=== PATIENT | female | born 1995 | race Caucasian/White ===

== ENCOUNTER 2019-12-16 09:45 | Emergency (ER) | payer OTHER ==
[~2019-12-16] VITALS: Ht 175.3 cm; Wt 113.4 kg
[2019-12-16 10:38] LABS: BASOPHILS ABSOLUTE AUTO 0.03 K/mm3 (0.00-0.23); BASOPHILS PERCENT AUTO 0 % (0-2); EOSINOPHILS ABSOLUTE AUTO 0.03 K/mm3 (0.00-0.68); EOSINOPHILS PERCENT AUTO 0 % (0-6); Hemoglobin 12.2 g/dL (11.5-16.0); IMMATURE GRAN ABSOLUTE AUTO 0.03 K/mm3 (0.00-0.10); IMMATURE GRAN PERCENT AUTO 0 % (0-1); LYMPHOCYTES ABSOLUTE AUTO 0.94 K/mm3 (0.84-5.20); LYMPHOCYTES PERCENT AUTO 12 % (21-46); MONOCYTES ABSOLUTE AUTO 0.72 K/mm3 (0.16-1.47); MONOCYTES PERCENT AUTO 9 % (4-13); Mean Corpuscular HGB 25.7 pg (26.0-34.0); Mean Corpuscular HGB Conc 30.5 g/dL (31.5-36.5); Mean Corpuscular Volume 84 fL (80-100); Mean Platelet Volume 9.5 fL (9.1-12.4); NEUTROPHILS ABSOLUTE AUTO 6.06 K/mm3 (1.96-9.15); NEUTROPHILS PERCENT AUTO 78 % (41-73); Platelet Count 280 K/mm3 (150-400); RDW Coefficient Variation 14.7 % (11.7-14.2); RDW Standard Deviation 45.1 fL (35.1-46.3); Red Blood Cell Count 4.74 M/mm3 (3.80-5.20); White Blood Cell Count 7.81 K/mm3 (4.00-11.30)
[2019-12-16 10:57] LABS: Anion Gap 5 mmol/L (6-16); Blood Urea Nitrogen 12 mg/dL (8-24); Bun/Creatinine Ratio 15.4 (12.0-20.0); CO2, Blood 27 mmol/L (21-32); Calcium, Blood 9.5 mg/dL (8.5-10.1); Chloride, Blood 107 mmol/L (98-108); Creatinine, Blood 0.78 mg/dL (0.40-1.00); Glomerular Filtration Rate >60 (60-); Glucose, Blood 88 mg/dL (70-99); Potassium, Blood 3.7 mmol/L (3.5-5.5); Sodium, Blood 139 mmol/L (136-145)
[2019-12-16] MEDS ORDERED: Veetids 500500 MG PO (11:09)
== END 2019-12-16 11:30 | disposition home or self-care (01) ==
LOC: ER 09:45
PROVIDERS: Emergency Medicine
DX: K04.7 Periapical abscess without sinus (principal); R59.0 Localized enlarged lymph nodes
CPT/HCPCS: 36415; 76536; 80048; 85025; 99283-25

== ENCOUNTER 2019-12-18 02:55 | Emergency (ER) | payer OTHER ==
[~2019-12-18] VITALS: Ht 175.3 cm; Wt 113.4 kg
[~2019-12-18 02:55] MED LIST: Veetids 500500 MG PO
[2019-12-18] MEDS ORDERED: Cleocin HCl300 MG PO (03:18)
== END 2019-12-18 03:30 | disposition home or self-care (01) ==
LOC: ER 02:55
DX: K11.20 Sialoadenitis, unspecified (principal); Z88.0 Allergy status to penicillin
CPT/HCPCS: 99283; A9270; A9270-GY; J1100

== ENCOUNTER → 2019-12-27 | Outpatient (CLI) | payer OTHER ==
[~2019-12-27] MED LIST changes: +Cleocin HCl300 MG PO
== END | disposition home or self-care (01) ==
LOC: LAB EV 17:44 → LAB SHORT 17:44
DX: N39.0 Urinary tract infection, site not specified (principal)
CPT/HCPCS: 87077; 87086; 87186

== ENCOUNTER 2020-11-13 08:29 | Emergency (ER) | payer OTHER ==
[~2020-11-13] VITALS: Ht 175.3 cm; Wt 120.2 kg
[2020-11-13] MEDS ORDERED: IVERMECTIN3 MG PO (08:47)
[2020-11-13] MEDS ORDERED: DOXY100 PO (08:47)
== END 2020-11-13 10:00 | disposition home or self-care (01) ==
LOC: ER 08:29
DX: U07.1 COVID-19 (principal); Z88.2 Allergy status to sulfonamides; Z88.7 Allergy status to serum and vaccine
CPT/HCPCS: 99283-25; M0243; Q0243